=== PATIENT | female | born 1955 | race Caucasian/White ===

== ENCOUNTER 2019-12-18 08:20 | Outpatient (CLI) | payer OTHER, SELFPAY ==
--- NOTE | 2019-12-18 08:22 | MM_ITS ---
WS: [id number] DIAGNOSTIC LEFT DIGITAL MAMMOGRAM WITH implant views and CAD HISTORY: HX OF BREAST CA; RT MASTECTOMY COMPARISON: 05/23/2017, 11/18/2014 and 11/30/2013 Technique: CC, MLO and ML views. Implant displacement views. Breast composition: There are scattered areas of fibroglandular density. IV capsular contraction [place] rounding the implant is similar to the prior studies. There is a calcified benign-appearing nodule me asuring 5.4 mm lateral to the nipple. No suspicious calcifications or mass. MM/[place] [id number] IMPRESSION: BI-RADS: 2-Benign FOLLOW UP: 1 Year Follow-up
== END 2019-12-18 08:21 | disposition home or self-care (01) ==
LOC: RADSHAW 08:20
PROVIDERS: Family Provider Internal Medicine; PCP Internal Medicine; Visit Provider Internal Medicine
DX: Z85.3 Personal history of malignant neoplasm of breast (principal); Z90.11 Acquired absence of right breast and nipple
CPT/HCPCS: 77065

== ENCOUNTER 2021-03-02 09:29 | Outpatient (CLI) | payer OTHER, SELFPAY ==
--- NOTE | 2021-03-02 09:43 | MM_ITS ---
WS: [id number] LEFT DIGITAL MAMMOGRAPHY WITH CAD CLINICAL INFORMATION: HX OF BREAST CA;RT MASTECTOMY HISTORY: COMPARISON: December 18, 2019 TECHNIQUE: 6 views of the left breast were obtained. FINDINGS: Scattered fibroglandular densities of the left breast. Stable calcified nodular density measuring 5 m m is unchanged. Left breast implant with capsular calcifications is stable. No suspicious focal mass, asymmetry, calcifications, or architectural distortion. No evidence of katja gnancy. MM/MM diagnostic mammo [id number] IMPRESSION: BI-RADS: 2-Benign FOLLOW UP: 1 Year Follow-up Recommend return to annual diagnostic mammography.
== END 2021-03-02 09:30 | disposition home or self-care (01) ==
LOC: RADSHAW 09:33
PROVIDERS: Family Provider Internal Medicine; PCP Internal Medicine; Visit Provider Internal Medicine
DX: Z85.3 Personal history of malignant neoplasm of breast (principal); Z90.11 Acquired absence of right breast and nipple
CPT/HCPCS: 77065

== ENCOUNTER 2022-09-20 15:14 | Outpatient (CLI) | payer OTHER, SELFPAY ==
--- NOTE | 2022-09-20 15:45 | MM_ITS ---
WS: [id number] LEFT 3D TOMOSYNTHESIS DIGITAL MAMMOGRAPHY WITH CAD CLINICAL INFORMATION: HX OF BREAST CANCER; COMPARISON: March 02, 2021 TECHNIQUE: 3 views of the left breast were obtained. FINDINGS: LEFT breast implant capsular calcifications. Scattered fibroglandular densities of the left breast. 6 mm area of clustered irregular calcification s posterior depth lateral breast appears increased or changed configuration compared to previous. Rec ommend spot magnification views for further evaluation. MM/[place] [id number] IMPRESSION: BI-RADS: 0-Incomplete: Need additional imaging evaluation FOLLOW UP: Need Additional Imaging Recommend spot magnification views for further evaluation.
== END 2022-09-20 15:15 | disposition home or self-care (01) ==
LOC: RAD 15:15
PROVIDERS: PCP Internal Medicine; Visit Provider Internal Medicine
DX: Z85.3 Personal history of malignant neoplasm of breast (principal)
CPT/HCPCS: 77061

== ENCOUNTER 2022-10-02 14:28 | Outpatient (CLI) | payer OTHER, SELFPAY ==
--- NOTE | 2022-10-02 14:36 | MM_ITS ---
WS: [id number] LEFT 3D TOMOSYNTHESIS DIGITAL MAMMOGRAPHY WITH CAD CLINICAL INFORMATION: INCONCLUSIVE MAMMOGRAM COMPARISON: September 20, 2022 TECHNIQUE: 3 views of the left breast were obtained. FINDINGS: Scattered fibroglandular densities of the left breast. 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 This has changed co nfiguration in comparison to the prior examinations. This would be difficult to biopsy with stereotac tic localization due to proximity to the implant. Recommend 6 month follow-up to confirm stability wi th spot magnification view. MM/[place] [id number] IMPRESSION: BI-RADS: 3-Probably Benign FOLLOW UP: 6 Month Follow-up Recommend 6 month LEFT breast diagnostic mammography with spot magnification vi ews.
== END 2022-10-02 14:29 | disposition home or self-care (01) ==
LOC: RAD 14:29
PROVIDERS: PCP Internal Medicine; Visit Provider Internal Medicine
DX: R92.2 Inconclusive mammogram (principal)
CPT/HCPCS: 77065

== ENCOUNTER 2023-04-11 13:55 | Outpatient (CLI) | payer OTHER, SELFPAY ==
--- NOTE | 2023-04-11 14:03 | MM_ITS ---
WS: [id number] LEFT 3D TOMOSYNTHESIS DIGITAL MAMMOGRAPHY WITH CAD CLINICAL INFORMATION: HX PERSONAL BR CA; RT MST; ABNORMAL MAMMO HISTORY: Six-month follow-up COMPARISON: October 02, 2022 TECHNIQUE: 3 views of the left breast were obtained. FINDINGS: The left breast is composed of heterogeneous fibroglandular density tissue, which can limit the detec tion of small underlying mass lesions. 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 Stable LEFT breast implant with capsular calcifications. Recommend return t o annual diagnostic mammography. MM/[place] [id number] IMPRESSION: BI-RADS: 2-Benign FOLLOW UP: See Report Recommend return to annual diagnostic mammography.
== END 2023-04-11 13:56 | disposition home or self-care (01) ==
PROVIDERS: PCP Internal Medicine; Visit Provider Internal Medicine
DX: R92.8 Other abnormal and inconclusive findings on diagnostic imaging of breast (principal)
CPT/HCPCS: 77061; G0279

== ENCOUNTER 2024-12-17 09:19 | Outpatient (CLI) | payer OTHER, SELFPAY ==
--- NOTE | 2024-12-17 09:25 | MM_ITS ---
WS: [id number] LEFT 3D TOMOSYNTHESIS DIGITAL MAMMOGRAPHY WITH CAD CLINICAL INFORMATION: HX OF MALIGNANT NEOPLASM OF BREAST HISTORY: RIGHT mastectomy COMPARISON: 2022 TECHNIQUE: 3 views of the left breast were obtained. FINDINGS: The left breast is composed of heterogeneous fibroglandular density tissue, which can limit the detection of small underlying mass lesions. 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 Stable LEFT breast implants with capsular calcifications. No suspicious focal mass, asymmetry, calcifications, or architectural distortion. No evidence of katja gnancy. MM/MM diag LT tomosynthesis [id number] IMPRESSION: DENSITY: The breasts are heterogeneously dense, which may obscure small masses. BI-RADS: 2 - Benign FOLLOW UP: 1 Year Follow-up Recommend return to annual diagnostic mammography.
== END 2024-12-17 09:20 | disposition home or self-care (01) ==
PROVIDERS: PCP Internal Medicine; Visit Provider Internal Medicine
DX: Z85.3 Personal history of malignant neoplasm of breast (principal); R92.332 Mammographic heterogeneous density, left breast; R92.1 Mammographic calcification found on diagnostic imaging of breast; Z98.82 Breast implant status; Z90.11 Acquired absence of right breast and nipple
CPT/HCPCS: 77061; G0279